=== PATIENT | male | born 1965 | race Caucasian/White ===

== ENCOUNTER 2016-08-31 18:04 | Emergency (ER) | payer BC ==
[~2016-08-31] VITALS: Ht 172.7 cm; Wt 165.0 kg
[~2016-08-31 18:04] MED LIST: ACARBOSE PO; ASPI325T4 PO; CALC-72 PO; DAPA5TAB PO; GLIM4TAB2 PO; GLUC1500 PO; HYDR25TA6 PO; LISI5TAB7 PO; METF10002 PO; MULT-658 PO; OMEG1CAP23 PO; PRAV40TA2 PO; SITA100T PO; VITA1CAP PO; fluoxetine PO; gabapentin PO
[2016-08-31] MEDS ORDERED: CANA100T PO (18:30)
[2016-08-31] MEDS ORDERED: CLINDAMYCIN PMX 900MG/50ML 50 ML IV ONE (19:00)
[2016-08-31] MEDS ORDERED: SODIUM CHLORIDE 0.9% 1,000ML IVBOLUS ONE (19:00)
[2016-08-31] MEDS ORDERED: SODIUM CHLORIDE FLUSH 10ML SYR IVF ONE (19:00)
[2016-08-31 19:22] LABS: PH, VENOUS 7.413 pH (7.320-7.420)
[2016-08-31] MEDS ORDERED: CLINDAMYCIN PMX 900MG/50ML 50 ML ONE (19:38)
[2016-08-31 19:39] LABS: ASPARTATE AMINO TRANSFERASE 22 U/L (15-37); BLOOD UREA NITROGEN 21 mg/dL (7-18); C-REACTIVE PROTEIN, QUANT 0.87 mg/dL (0.02-0.49)
[2016-08-31 21:13] VITALS: BP 126/84
== END 2016-08-31 21:16 | disposition home or self-care (01) ==
LOC: ED 21:14
DX: L03.115 Cellulitis of right lower limb (principal); I10 Essential (primary) hypertension; E11.65 Type 2 diabetes mellitus with hyperglycemia; E78.5 Hyperlipidemia, unspecified; E66.9 Obesity, unspecified; Z79.84 Long term (current) use of oral hypoglycemic drugs; Z79.899 Other long term (current) drug therapy
CPT/HCPCS: 36415; 73630; 80053; 82010; 82803; 83605; 84145; 85025; 85651; 86140; 87040; 96365; 99285; J7030

== ENCOUNTER 2016-09-01 16:25 | Emergency (ER) | payer BC ==
[~2016-09-01] VITALS: Ht 172.7 cm; Wt 166.0 kg
[~2016-09-01 16:25] MED LIST changes: +CANA100T PO
[2016-09-01 16:28] VITALS: BP 131/83
[2016-09-01] MEDS ORDERED: BACITRACIN ZINC OINT 500U/GM, 0.9 GM ONE (17:07)
== END 2016-09-01 17:30 | disposition home or self-care (01) ==
LOC: ED 17:23
DX: L03.031 Cellulitis of right toe (principal); L03.115 Cellulitis of right lower limb; E11.65 Type 2 diabetes mellitus with hyperglycemia
CPT/HCPCS: 82962; 99281; 99282

== ENCOUNTER → 2016-09-05 | Outpatient (CLI) | payer BC | END | disposition home or self-care (01) | LOC: WOUND 08:43 | PROVIDERS: ATTEND Podiatrist Foot & Ankle Surgery | DX: E11.621 Type 2 diabetes mellitus with foot ulcer (principal); L97.511 Non-pressure chronic ulcer of other part of right foot limited to breakdown of skin; G47.30 Sleep apnea, unspecified; E66.01 Morbid (severe) obesity due to excess calories; I10 Essential (primary) hypertension; E78.5 Hyperlipidemia, unspecified; Z87.891 Personal history of nicotine dependence | CPT/HCPCS: 97597; 99215 ==

== ENCOUNTER → 2016-09-12 | Outpatient (CLI) | payer BC | END | disposition home or self-care (01) | LOC: WOUND 10:07 | PROVIDERS: ATTEND Podiatrist Foot & Ankle Surgery | DX: E11.621 Type 2 diabetes mellitus with foot ulcer (principal); L97.511 Non-pressure chronic ulcer of other part of right foot limited to breakdown of skin; E66.01 Morbid (severe) obesity due to excess calories; I10 Essential (primary) hypertension; E78.5 Hyperlipidemia, unspecified; Z68.43 Body mass index [BMI] 50.0-59.9, adult; Z87.891 Personal history of nicotine dependence | CPT/HCPCS: 11043 ==

== ENCOUNTER → 2016-09-19 | Outpatient (CLI) | payer BC | END | disposition home or self-care (01) | LOC: WOUND 09:48 | PROVIDERS: ATTEND Podiatrist Foot & Ankle Surgery | DX: E11.621 Type 2 diabetes mellitus with foot ulcer (principal); L97.511 Non-pressure chronic ulcer of other part of right foot limited to breakdown of skin; E66.01 Morbid (severe) obesity due to excess calories; G47.30 Sleep apnea, unspecified; I10 Essential (primary) hypertension; E78.4 Other hyperlipidemia; E11.40 Type 2 diabetes mellitus with diabetic neuropathy, unspecified; Z79.84 Long term (current) use of oral hypoglycemic drugs; Z87.891 Personal history of nicotine dependence; Z68.43 Body mass index [BMI] 50.0-59.9, adult; Z79.899 Other long term (current) drug therapy | CPT/HCPCS: 11042 ==

== ENCOUNTER → 2016-09-20 | Outpatient (CLI) | payer BC | END | disposition home or self-care (01) | LOC: CFH 07:55 | PROVIDERS: ATTEND Family Medicine | DX: E11.40 Type 2 diabetes mellitus with diabetic neuropathy, unspecified (principal); E78.4 Other hyperlipidemia; I10 Essential (primary) hypertension | CPT/HCPCS: 93978 ==

== ENCOUNTER → 2016-10-28 | Outpatient (CLI) | payer BC ==
[~2016-10-28] MED LIST changes: +ASPI325T17 PO; -ASPI325T4 PO; +CALC-534 PO; -CALC-72 PO
== END | disposition home or self-care (01) ==
LOC: WOUND 10:00
PROVIDERS: ATTEND Physician Assistant
DX: E11.621 Type 2 diabetes mellitus with foot ulcer (principal); L97.511 Non-pressure chronic ulcer of other part of right foot limited to breakdown of skin; E66.01 Morbid (severe) obesity due to excess calories; I10 Essential (primary) hypertension; E78.2 Mixed hyperlipidemia; Z68.43 Body mass index [BMI] 50.0-59.9, adult; Z87.891 Personal history of nicotine dependence; G47.30 Sleep apnea, unspecified
CPT/HCPCS: 99214